=== PATIENT | male | born 1975 | race Caucasian/White ===

== ENCOUNTER 2017-04-30 20:16 | Emergency (ER) | payer BC, OTHER ==
--- NOTE | 2017-04-30 21:42 | ED.PDOC ---
History of Present Illness - General Chief Complaint: Cardiovascular Problem Stated Complaint: irregular heartrate Time Seen by Provider: 04/30/17 20:54 Source: patient, RN notes reviewed, Vital Signs reviewed Exam Limitations: no limitations - History of Present Illness Initial Comments: Patient with known history of atrial fibrillation comes in with irregular heart beat. He woke up from a nap @ 17:00 and felt like he had not rested at all. Had no energy and felt a little light headed when he stood up. No chest pain or SOB. BP was elevated at home. He is not on any medications for a. fib at this time. He has had a cardiac workup for this but [facility] Timing/Duration: 1-3 hours Severity: mild Location: substernal Activities at Onset: rest Prior Chest Pain/Cardiac Workup: cardiac cath, stress test, thallium scan Improving Factors: nothing Worsening Factors: nothing Nitro Today/Relief: no nitro taken today Aspirin Treatment Today: no aspirin today Associated Symptoms: weakness Allergies/Adverse Reactions: Allergies NO KNOWN ALLERGY Allergy (Unverified 09/06/12 18:42) Home Medications: Ambulatory Orders Amlodipine Besylate 10 mg PO 04/30/17 Aspirin [Aspirin EC] 81 mg PO 04/30/17 Carvedilol 25 mg PO 04/30/17 Lisinopril 20 mg PO 04/30/17 Review of Systems - Review of Systems Constitutional: States: malaise, weakness. Denies: chills, diaphoresis, fever Respiratory: States: no symptoms reported. Denies: short of breath Cardiology: States: palpitations. Denies: chest pain Gastrointestinal/Abdominal: States: no symptoms reported Musculoskeletal: States: no symptoms reported Skin: States: no symptoms reported Neurological: States: no symptoms reported All other Systems: No Change from Baseline Past Medical History (General) - Patient Medical History Hx Cardiac Disorders: Yes - a-fib Hx Hypertension: Yes Hx Diabetes: No - Vaccination History Immunizations Up to Date: Yes - Triage Comment ED Triage Comment: states had episode in past of a-fib. Family Medical History - Family History Mother Family History: Unknown Physical Exam - Physical Exam General Appearance: Alert, Comfortable, No apparent distress, Well Developed, Well Groomed, Well Hydrated, Well Nourished Neck: non-tender, full range of motion, supple, normal inspection Respiratory: chest non-tender, lungs clear, normal breath sounds, no respiratory distress, no accessory muscle use Cardiovascular/Chest: no gallop, no murmur, tachycardia, irregularly irregular Gastrointestinal/Abdominal: normal bowel sounds, non tender, soft Extremity: normal range of motion, normal inspection, no pedal edema Neurologic: alert, normal mood/affect, oriented x 3 Skin Exam: normal color, warm/dry Comments: Vital Signs 04/30/17 04/30/17 04/30/17 20:36 20:55 21:16 Temperature 98.2 F Pulse Rate 148 H Pulse Rate [ 148 H 159 H 98 H Apical] Respiratory 18 16 Rate Blood Pressure 148/71 134/77 126/71 [Right Arm] O2 Sat by Pulse 97 96 Oximetry Progress - Progress Progress: 04/30/17 21:[address] patient was given Cardizem 20mg IV with a good response. Will give Lovenox 04/30/17 22:43 CK-MB is elevated. Will repeat 2nd set of Cardiac enzymes @ midnight Gave Cardizem CD 120mg PO 05/01/17 00:50 Second set of Cardiac enzymes are better but his heart rate is back up to 140's Will start Diltiazem drip and transfer to the [facility] in [place] 05/01/17 01:21 [facility] is on Tele divert and is unable to accept patient at this time. Will transfer to [facility] in [place]. - Results/Orders Results/Orders: Laboratory Tests 04/30/17 04/30/17 04/30/17 00:05 21:00 21:00 WBC 10.9 H RBC 5.47 Hgb 15.3 Hct 45.4 MCV 83.0 MCH 28.0 MCHC 33.7 RDW 13.8 Plt Count 217 MPV 10.1 Absolute Neuts (auto) 5.50 Absolute Lymphs (auto) 3.80 H Absolute Monos (auto) 1.20 H Absolute Eos (auto) 0.30 Absolute Basos (auto) 0.20 H Neutrophils % 50.4 Lymphocytes % 34.6 Monocytes % 10.9 H Eosinophils % 2.5 Basophils % 1.6 Sodium 139 Potassium 4.4 Chloride 107 Carbon Dioxide 23 Anion Gap 13.4 BUN 16 Creatinine 0.90 BUN/Creatinine Ratio 17.8 Random Glucose 103 Serum Osmolality 279.0 Calcium 9.2 Magnesium Total Bilirubin 0.7 AST 33 ALT 54 Alkaline Phosphatase 47 Creatine Kinase 273 H* 298 H* CK-MB (CK-2) 3.9 4.6 H* CK-MB (CK-2) % 1.43 1.54 Troponin I < 0.02 0.03 Serum Total Protein 7.2 Albumin 3.9 Globulin 3.3 Albumin/Globulin Ratio 1.2 TSH 04/30/17 21:00 WBC RBC Hgb Hct MCV MCH MCHC RDW Plt Count MPV Absolute Neuts (auto) Absolute Lymphs (auto) Absolute Monos (auto) Absolute Eos (auto) Absolute Basos (auto) Neutrophils % Lymphocytes % Monocytes % Eosinophils % Basophils % Sodium Potassium Chloride Carbon Dioxide Anion Gap BUN Creatinine BUN/Creatinine Ratio Random Glucose Serum Osmolality Calcium Magnesium 2.0 Total Bilirubin AST ALT Alkaline Phosphatase Creatine Kinase CK-MB (CK-2) CK-MB (CK-2) % Troponin I Serum Total Protein Albumin Globulin Albumin/Globulin Ratio TSH 4.69 - EKG/XRAY/CT EKG: Atrial, Fibrillation Comments: with RVR, Rate 137 - Additional EKG/XRAY/Consults EKG #2: Atrial, Fibrillation - With RVR Comments: Rate 118 Departure - Departure Clinical Impression: Atrial fibrillation with rapid ventricular response Time of Disposition: 01:28 Disposition: Transfer to Hospital Condition: Poor Departure Forms: ED Discharge - Pt. Copy, Patient Portal Self Enrollment Referrals: Douglas Cortez III, MD [Primary Care Provider] - 1-2 Weeks Home Medications: Ambulatory Orders Amlodipine Besylate 10 mg PO 04/30/17 Aspirin [Aspirin EC] 81 mg PO 04/30/17 Carvedilol 25 mg PO 04/30/17 Lisinopril 20 mg PO 04/30/17 Transfer to Outside Facility - Transfer Information Accepting Provider:: Dr Villatoro Accepting Facility: [facility] Reason for Transfer: specialized care not available
[2017-04-30] MEDS ORDERED: ENOXAPARIN SODIUM 60 MG/0.6 ML SYG SUBCU ONE (21:56)
[2017-05-01] MEDS ORDERED: diltiaZEM DRIP 125 MG/25 ML VIAL IVPB ONE (00:52)
[2017-05-01] MEDS ORDERED: SODIUM CHLORIDE 0.9% 100ML 100 ML IVPB ONE (00:52)
[2017-05-01] MEDS ORDERED: diltiaZEM DRIP 125 MG in SODIUM CHLORIDE 0.9% 100ML 100 ML IVPB SCH (01:00)
[2017-05-01 01:53] VITALS: TEMP 98.6
[2017-05-01 02:01] VITALS: BP 120/58; O2SAT 95
== END 2017-05-01 02:35 | disposition short-term general hospital (02) ==
LOC: ER 20:16
DX: I48.91 Unspecified atrial fibrillation (principal); I10 Essential (primary) hypertension
CPT/HCPCS: 36415; 80053; 82550; 82553; 83735; 84443; 84484; 85025; 93005; J1650; J7050

== ENCOUNTER 2018-01-29 07:47 | Observation (INO) | payer OTHER ==
[2018-01-29] MEDS ORDERED: SODIUM CHLORIDE 0.9% 1000ML 1,000 ML ONE (08:00)
[2018-01-29] MEDS ORDERED: ASPIRIN TABLET 325 MG TAB PO ONE (08:06)
--- NOTE | 2018-01-29 08:14 | ED.PDOC ---
History of Present Illness - General Chief Complaint: Cardiovascular Problem Stated Complaint: heart racing Time Seen by Provider: 01/29/18 07:59 Source: patient Exam Limitations: no limitations - History of Present Illness Initial Comments: the patient is a 42-year-old male presenting to the emergency room secondary to a recurrence of his paroxysmal atrial fibrillation. The patient does take Coreg 25 mg twice daily for prevention of this problem as well as for treatment of hypertension. He has had apparently 3 episodes of paroxysmal atrial fibrillation in the past. He has been to several different larger hospitals and seeing cardiology there on several occasions. His last episode was one year ago. This morning he woke up feeling like his heart was racing with some mild shortness of breath and some mild diaphoresis. No real chest pain just some mild generalized chest discomfort. Not worse with movement. No syncope or near syncope. No recent changes in medications. No other known medical problems. He has never had a heart attack. No history of any thyroid disorder. No history of any blood clots. Timing/Duration: 1-3 hours Severity: moderate Improving Factors: nothing Worsening Factors: nothing Associated Symptoms: diaphoresis Allergies/Adverse Reactions: Allergies NO KNOWN ALLERGY Allergy (Verified 01/29/18 07:58) Home Medications: Ambulatory Orders Amlodipine Besylate 10 mg PO DAILY 04/30/17 Carvedilol 25 mg PO BID 04/30/17 Lisinopril 20 mg PO BID 04/30/17 Aspirin [(None)] 325 mg PO DAILY 01/29/18 Review of Systems - Review of Systems Constitutional: States: malaise EENTM: States: no symptoms reported Respiratory: States: short of breath - mild Cardiology: States: see HPI Gastrointestinal/Abdominal: States: no symptoms reported Genitourinary: States: no symptoms reported Musculoskeletal: States: no symptoms reported Skin: States: no symptoms reported Neurological: States: anxiety Endocrine: States: no symptoms reported All other Systems: No Change from Baseline Past Medical History (General) - Patient Medical History Hx Cardiac Disorders: Yes - a-fib Hx Hypertension: Yes Hx Diabetes: No Surgical History: no surgical history - Vaccination History Hx Influenza Vaccination: No - Social History Hx Tobacco Use: No Hx Alcohol Use: No Family Medical History - Family History Mother Family History: Unknown Physical Exam - Physical Exam General Appearance: Alert, Comfortable, No apparent distress Eye Exam: bilateral normal Ears, Nose, Throat: hearing grossly normal, normal ENT inspection, normal pharynx Neck: full range of motion, supple Respiratory: lungs clear, normal breath sounds, no respiratory distress, no accessory muscle use Cardiovascular/Chest: normal peripheral pulses, no edema Peripheral Pulses: radial,right: 2+, radial,left: 2+, dorsalis pedis,right: 2+, dorsalis pedis,left: 2+ Gastrointestinal/Abdominal: non tender, soft Rectal Exam: deferred Back Exam: normal inspection, no CVA tenderness Extremity: non-tender, normal inspection, no pedal edema, no calf tenderness, normal capillary refill Neurologic: software sales consultant II-XII nml as tested, alert, normal mood/affect, oriented x 3 Skin Exam: normal color Comments: Vital Signs - 24 hr 01/29/18 01/29/18 07:55 08:02 Temperature 97.1 F L Pulse Rate [ 154 H 134 H pulse ox] Respiratory 20 Rate Blood Pressure 156/89 [Left Arm] O2 Sat by Pulse 96 Oximetry Progress - Progress Progress: 01/29/18 11:49 the patient is a 42-year-old male presenting after about 3 hours of the noticeable onset of atrial fibrillation with RVR. The patient received 20 mg of IV diltiazem followed by another 180 mg of the long-acting oral form about an hour and a half later. He is still in atrial fibrillation but is rate controlled. He is currently asymptomatic. He did take his oral carvedilol at 25 mg this morning before coming up here. Both sets of cardiac enzymes have failed to show any rise in troponin. His EKG otherwise is reassuring besides the atrial fibrillation. He has no known history of any valvular disease or coronary artery disease. He has cardioverted in the past apparently only with medications and is not interested in any electrical cardioversion at this time which is reasonable given his minimal symptoms. Vital signs have remained stable otherwise. He is currently rate controlled in the 70s to 90s. He did receive a dose of aspirin and a dose of Lovenox here. The patient is going to be admitted for further monitoring and management for rate control and possible cardioversion, chemically. He will need further cardiac enzymes to complete the rule out process. The chest x-ray shows possible pulmonary edema however I believe this is simply a factor of the patient being very large and this being a portable single view x-ray. A repeat of this with a good two-view x-ray may give a better image. No evidence of any hypoxia. Again his lungs have been clear and he has been chest pain-free. He is not feeling the atrial fibrillation now that is rate controlled. Admit for above. - Results/Orders Results/Orders: EKG shows atrial fibrillation at a rate of 136 bpm. There is a Q-wave in lead 3. He has borderline criteria for LVH. No definitive changes in ST segments concerning for ischemia. Normal QT interval. Possibly a very mild right axis deviation. Departure - Departure Clinical Impression: Atrial fibrillation with RVR Disposition: Admit Patient Departure Forms: ED Discharge - Pt. Copy, Patient Portal Self Enrollment Referrals: Douglas Cortez III, MD [Primary Care Provider] - 1-2 Weeks Home Medications: Ambulatory Orders Amlodipine Besylate 10 mg PO DAILY 04/30/17 Carvedilol 25 mg PO BID 04/30/17 Lisinopril 20 mg PO BID 04/30/17 Aspirin [(None)] 325 mg PO DAILY 01/29/18 Decision To Admit - Decistion To Admit Decision to Admit Reason: Medical Nature Decision to Admit Date: 01/29/18 Decision to Admit Time: 11:53
--- NOTE | 2018-01-29 08:36 | RAD ---
EXAM DESCRIPTION: Chest,1 View CLINICAL HISTORY: parox afib COMPARISON: None. FINDINGS: Cardiac silhouette is within normal limits. There is no focal parenchymal or pleural disease. There is bilateral maxillary vascular engorgement. Habitus limits detail. Consolidation is not excluded at the left lung base. IMPRESSION: Pulmonary edema. Limited detail. Electronically signed by: Jl Merritt 01/29/2018 8:35 AM CDT
[2018-01-29] MEDS ORDERED: diltiaZEM HCL CD 180 MG CAP PO ONE (09:08)
[2018-01-29] MEDS ORDERED: SODIUM CHLORIDE 0.9% 1000ML 1,000 ML IVS ONE (09:10)
[2018-01-29] MEDS ORDERED: ENOXAPARIN SODIUM 100 MG/ML SYG SUBCU ONE (11:44)
[2018-01-29] MEDS ORDERED: METOPROLOL TARTRATE 25 MG TAB PO ONE (11:56)
--- NOTE | 2018-01-29 12:39 | HP ---
SUPERVISING PHYSICIAN: Dev Vargas M.D. CHIEF COMPLAINT: Palpitations. HISTORY OF PRESENT ILLNESS: This is a 42 year-old male patient who presented to the Emergency Room secondary to recurrence of paroxysmal atrial fibrillation. He has had 3 episodes over the last 3 years and has been transferred to other hospitals due to that, but he does not see a stopper maker helper routinely. The patient woke up this morning about 5:00 AM. He did not have any chest pain but he felt the palpitations in his chest. He said it was just kind of a dull ache and initially thought it was some symptoms of some acid reflux. Then he woke up at 7:00 AM and he had some mild chest pain and the palpitations were much worse. They were very similar to episodes that he has had in the past. He does take Coreg for the paroxysmal atrial fibrillation and he came to the Emergency Room today. In the Emergency Room he came in and his heart rate was in the 130s to 150s. He was in atrial fibrillation. He was initially given 20 mg of Cardizem IV. It slowed his heart rate down to the 100s to 120s. He was then given some long-acting Cardizem. His heart rate dropped to the 80s and 90s. On admission to the Emergency Room, he had no further complaints of chest pain. His initial 2 sets of cardiac enzymes were negative with the exception of his CK was 396 and his CK-MB was 5.3. His electrolytes were basically within normal limits but his glucose was slightly elevated at 157. His CBC was within normal limits. His PT was 10.1, INR was 0.8. PTT was 35.7 and D-dimer was less than 230. I was called for admission for further monitoring and management of rate control. PAST MEDICAL HISTORY: 1. Hypertension. 2. Gastroesophageal reflux disease. 3. Atrial fibrillation. 4. Heart murmur. 5. Sleep apnea. PAST SURGICAL HISTORY: 1. Eye surgery as a child. 2. Oral surgery as a child. OUTPATIENT MEDICATIONS: 1. Multivitamin. 2. Amlodipine. 3. Aspirin. 4. Carvedilol. 5. Lisinopril. ALLERGIES: NO KNOWN DRUG ALLERGIES. FAMILY HISTORY: His dad has heart problems and of lung cancer due to smoking. His mom has diabetes mellitus and hypertension. SOCIAL HISTORY: He denies any smoking, ETOH or illicit drug use. REVIEW OF SYSTEMS: GENERAL: Denies fever, fatigue or weight changes. HEENT: Denies sinus symptoms, ear pain, vision changes or sore throat. RESPIRATORY: Initially complained of some shortness of breath, but at this time no complaints of shortness of breath, wheezing or coughing. CARDIOLOGY: As per History of Present Illness. GASTROINTESTINAL: Negative for nausea, vomiting, diarrhea or constipation. GENITOURINARY: Negative for hematuria, dysuria or polyuria. MUSCULOSKELETAL: Negative for back pain, arthralgias or myalgias. NEUROLOGIC: Positive for some mild anxiety. Negative for dizziness, headache or seizures. PHYSICAL EXAMINATION: VITAL SIGNS: He is afebrile, heart rate 92, blood pressure 161/83, respiratory rate 18, O2 sat is 95% on room air. GENERAL: This is a 42 year-old male patient. He is obese. HEENT: Normocephalic and atraumatic. Pupils are equal and reactive. Oropharynx is clear. NECK: Supple without mass. There is no discernible jugular venous distention. RESPIRATORY: Somewhat diminished at the bases but otherwise clear to auscultation. CHEST: There is equal rise and fall of the chest with inspiration and expiration. CARDIOVASCULAR: Regular rate, irregular rhythm. Atrial fibrillation on the media monitor although I see occasional runs of sinus rhythm. There may be a vague heart murmur but difficult to discern. ABDOMEN: Soft, nondistended, non-tender. Bowel sounds are positive. EXTREMITIES: No cyanosis, clubbing or edema. NEUROLOGIC: He is awake, alert and oriented times three. LABORATORY: Labs are as per the history of present illness. Chest x-ray showed some mild pulmonary edema with limited detail. All other labs and films have been reviewed via the EMR. ASSESSMENT: 1. Paroxysmal atrial fibrillation. 2. Hypertension. 3. Gastroesophageal reflux disease. 4. Sleep apnea. PLAN: We will place the patient in Observation. He will be placed on the media monitor and we will do serial cardiac enzymes. I have consulted Dr. Nichole in the morning for cardiac workup. I will also repeat his lab as well as a 2 view chest x-ray in the morning. His home medications have been restarted. We will continue to monitor him closely and follow as needed. Dr. Vargas is the collaborating physician available for consultation. #[id number] [facility]
[2018-01-29] MEDS ORDERED: SODIUM CHLORIDE 0.9% (FLUSH) 10 ML SYG IV PRN (13:17)
[2018-01-29] MEDS ORDERED: TEMAZEPAM 15 MG CAP PO PRN (13:18)
[2018-01-29] MEDS ORDERED: IV SET AND CAP CHANGE INJ INJ SCH (13:30)
[2018-01-29] MEDS: PANTOPRAZOLE SODIUM TAB 40 MG PO SCH (14:16)
[2018-01-29] MEDS: ENOXAPARIN SODIUM 40 MG/0.4 ML SYG SUBCU SCH ×2 (14:16→14:19)
[2018-01-29] MEDS: SODIUM CHLORIDE 0.9% (FLUSH) 10 ML SYG IV SCH (21:02)
[2018-01-29] MEDS: CARVEDILOL 12.5 MG TAB PO SCH (21:02)
[2018-01-29] MEDS: LISINOPRIL 10 MG TAB PO SCH (21:02)
[2018-01-30] MEDS: PANTOPRAZOLE SODIUM TAB 40 MG PO SCH (06:32)
--- NOTE | 2018-01-30 07:27 | RAD ---
Examination: XR CHEST 2 VIEWS dated 01/30/2018 5:00 AM CDT History: afib Comparison: 01/29/2018 Technique: 2 views of the chest Findings: The lungs are clear bilaterally. No pneumothorax or pleural effusion. The cardiomediastinal silhouette is within normal limits. Impression: No acute disease. Electronically signed by: Edmond Dias MD 01/30/2018 7:26 AM CDT
[2018-01-30] MEDS ORDERED: amLODIPine BESYLATE 5 MG TAB PO SCH (09:00)
[2018-01-30] MEDS ORDERED: ENOXAPARIN SODIUM 40 MG/0.4 ML SYG SUBCU SCH (09:00)
[2018-01-30] MEDS ORDERED: ASPIRIN TABLET 325 MG TAB PO SCH (09:00)
[2018-01-30] MEDS: CARVEDILOL 12.5 MG TAB PO SCH (09:17)
[2018-01-30] MEDS: LISINOPRIL 10 MG TAB PO SCH (09:25)
[2018-01-30] MEDS: SODIUM CHLORIDE 0.9% (FLUSH) 10 ML SYG IV SCH (09:28)
[2018-01-30 12:08] VITALS: TEMP 98
[2018-01-30 12:23] VITALS: O2SAT 95
[2018-01-30 15:26] VITALS: BP 137/78
--- NOTE | 2018-01-31 09:19 | DS ---
SUPERVISING PHYSICIAN: Dev Vargas MD DISCHARGE DIAGNOSIS: 1. Paroxysmal atrial fibrillation. 2. Hypertension. 3. Gastroesophageal reflux disease. 4. Sleep apnea. HISTORY OF PRESENT ILLNESS: This is a 42-year-old male patient who presented to the Emergency Room secondary to recurrence of paroxysmal atrial fibrillation. He has had 3 episodes over the last 3 years and has been transferred to other hospitals for the atrial fibrillation, but he does not see a senior core java developer routinely. On the date of admission, he woke up about 5:00 AM. There was no chest pain but he felt the palpitations. He said it was just kind of a dull ache and initially thought it was some symptoms of some acid reflux. He then woke up at 7:00 AM and he had some mild chest pain and the palpitations were worse. The chest pain and palpitations were similar to episodes that he has had in the past. He does take Coreg for the paroxysmal atrial fibrillation and he came to the Emergency Room. In the Emergency Room, his heart rate was in the 130s to 150s. He was in atrial fibrillation. He was initially given 20 mg of Cardizem IV. It slowed his heart rate down to the 100s to 120s. He was then given some long-acting Cardizem orally. His heart rate dropped to the 80s to 10s. In the Emergency Room, he had no complaints of chest pain. His initial 2 sets of cardiac enzymes were negative with the exception of his CK was 396 and his CK-MB was 5.3. His electrolytes were basically within normal limits but his glucose was slightly elevated at 157. His CBC was within normal limits. His coags were normal including his D-dimer less than 230. He was placed in observation in the hospital. HOSPITAL COURSE: The patient was placed on the hospice volunteer and initially his heart rate was controlled, but he varied between atrial fibrillation and sinus tachycardia. This morning, he converted to sinus rhythm. There were no further episodes of the atrial fibrillation with rapid ventricular response. His home medications were resumed. No additional medications were given or added other than he was given a proton pump inhibitor for ulcer prophylaxis and Lovenox for DVT prophylaxis. We discussed at length his need for a senior core java developer and an appointment was made with Dr. Joe. He has had no complaints of chest pain. His creatinine kinase dropped to 236. His CK-MB was 4.3 and all his troponins were negative. He will be discharged home in stable condition. DISCHARGE PLAN: The patient will be discharged home in stable condition. He is to resume his previous diet and activity. He is also to resume his home medications as previously ordered. He has a followup appointment with Dr. Joe on 02/06/18 at 1:15. He has a followup with is primary care physician, Dr. Douglas Cortez, on 02/07/18 at 8:30 AM. He is to return to the hospital or to Dr. Cortez' office for any further problems or complications. DISCHARGE MEDICATIONS: 1. Lisinopril. 2. Carvedilol. 3. Amlodipine. 4. Aspirin 325 mg. [address] Vargas is the collaborating physician and available for consultation. #[id number] [facility]
== END 2018-01-30 15:30 | disposition home or self-care (01) ==
LOC: ER 07:47 → MS 12:38
PROVIDERS: ADMIT Nurse Practitioner Acute Care; ATTEND Nurse Practitioner Acute Care
DX: I48.0 Paroxysmal atrial fibrillation (principal); I10 Essential (primary) hypertension; K21.9 Gastro-esophageal reflux disease without esophagitis; G47.30 Sleep apnea, unspecified; R06.02 Shortness of breath; Z79.82 Long term (current) use of aspirin; Z79.899 Other long term (current) drug therapy; Z82.49 Family history of ischemic heart disease and other diseases of the circulatory system; Z83.3 Family history of diabetes mellitus; Z80.1 Family history of malignant neoplasm of trachea, bronchus and lung
CPT/HCPCS: 96372 ×2; J7030; J1650 ×2; 85379; 82553 ×4; 80053 ×2; 36415 ×2; 85025 ×2; 82550 ×4; 83735; 85730; 85610; 84443; 84484 ×4; 83880; 71045; 71046; 94760 ×5; 99285; 93005 ×2; G0378; 96374; 96376

== ENCOUNTER 2018-02-08 09:30 | Emergency (ER) | payer OTHER ==
[2018-02-08] MEDS ORDERED: ASPIRIN TABLET 325 MG TAB PO ONE (09:50)
[2018-02-08] MEDS ORDERED: SODIUM CHLORIDE 0.9% (FLUSH) 10 ML SYG IV PRN (09:50)
[2018-02-08 09:52] VITALS: TEMP 98.4
[2018-02-08] MEDS ORDERED: diltiaZEM DRIP 125 MG/25 ML VIAL IVPB ONE (09:56)
[2018-02-08] MEDS ORDERED: AMIODARONE IV (LOAD) 150 MG in DEXTROSE 5% 100ML 100 ML IVPB ONE (09:57)
[2018-02-08] MEDS ORDERED: SODIUM CHLORIDE 0.9% 1000ML 1,000 ML IVS ONE (09:57)
[2018-02-08] MEDS ORDERED: niCARdipine HCL 25 MG in SODIUM CHLORIDE 0.9% 250ML 240 ML IVPB SCH (10:00)
[2018-02-08] MEDS ORDERED: AMIODARONE IV (MAINT) 900 MG in DEXTROSE 5% (AVIVA) 500ML 500 ML IVPB SCH (10:00)
[2018-02-08] MEDS ORDERED: AMIODARONE HCL 150 MG/3 ML VIAL IVPB ONE (10:03)
[2018-02-08] MEDS ORDERED: DEXTROSE 5% 100ML 100 ML IVPB ONE (10:04)
--- NOTE | 2018-02-08 10:06 | ED.PDOC ---
History of Present Illness - General Chief Complaint: Chest Pain/NE Stated Complaint: PALPITATIONS Time Seen by Provider: 02/08/18 09:44 Source: patient Exam Limitations: no limitations - History of Present Illness Initial Comments: PT REPORTS ONSET OF PALPITATIONS ASSOCIATED WITH CHEST PRESSURE AND MILD SOB UPON AWAKENING THIS AM. PT REPORTS A HISTORY OF AFIB WITH RECENT HOSPITALIZATION LAST WEEK. PT REPORTS HIS MEDS WERE ADJUSTED RECENTLY AND HE WAS PRESCRIBED A BLOOD THINNER BUT HAS NOT STARTED THE NEW REGIMEN YET. Timing/Duration: 1-3 hours Severity: mild Location: substernal Activities at Onset: sleep Improving Factors: nothing Worsening Factors: nothing Nitro Today/Relief: no nitro taken today Aspirin Treatment Today: no aspirin today Associated Symptoms: chest pain, shortness of breath Allergies/Adverse Reactions: Allergies NO KNOWN ALLERGY Allergy (Verified 01/29/18 13:30) Home Medications: Ambulatory Orders Amlodipine Besylate 10 mg PO DAILY 04/30/17 Carvedilol 25 mg PO BID 04/30/17 Lisinopril 20 mg PO BID 04/30/17 Aspirin 325 mg PO DAILY 01/29/18 Multiple Vitamin [Multi Vitamin] 1 tab PO DAILY 01/29/18 Azithromycin Tab [Zithromax] 250 mg PO QD #4 tab 02/08/18 Review of Systems - Review of Systems Constitutional: Denies: chills, fever EENTM: Denies: nose congestion, throat pain Respiratory: States: see HPI, short of breath. Denies: cough Cardiology: States: see HPI, chest pain, palpitations. Denies: syncope Gastrointestinal/Abdominal: Denies: nausea, vomiting Genitourinary: Denies: dysuria, frequency Musculoskeletal: Denies: joint pain, joint swelling Skin: Denies: dryness, lesions Neurological: Denies: headache, numbness Endocrine: States: no symptoms reported Hematologic/Lymphatic: States: no symptoms reported Past Medical History (General) - Patient Medical History Hx Seizures: No Hx Stroke: No Hx Asthma: No Hx of COPD: No Hx Cardiac Disorders: Yes - a-fib Hx Congestive Heart Failure: No Hx Pacemaker: No Hx Hypertension: Yes Hx Diabetes: No Hx MRSA: No Surgical History: no surgical history - Vaccination History Hx Influenza Vaccination: No - Social History Hx Tobacco Use: No Hx Alcohol Use: No Hx Substance Use: No Hx Physical Abuse: No Hx Emotional Abuse: No Family Medical History - Family History Mother Family History: Unknown Physical Exam - Physical Exam General Appearance: Alert, No apparent distress, Obese, Well Groomed, Well Hydrated Eyes, Ears, Nose, Throat Exam: normal ENT inspection Neck: normal inspection Respiratory: lungs clear, normal breath sounds, no respiratory distress Cardiovascular/Chest: no murmur, tachycardia, irregularly irregular Gastrointestinal/Abdominal: non tender, soft Extremity: normal inspection, no pedal edema Neurologic: alert, normal mood/affect, oriented x 3 Skin Exam: normal color, warm/dry Progress - Progress Progress: 02/08/18 11:48 PT RESTING COMFORTABLY, REPORTS COMPLETE RESOLUTION OF CHEST PAIN, PT NOW IN SR IN THE 70S WITH SBP OF 117 02/08/18 14:02 PTS HR REMAINS IN SR IN THE 80S, NO COMPLAINTS, AMIODARONE INFUSING. 02/08/18 15:36 PT CONTINUES TO REST COMFORTABLY, SR IN THE 70S, PT HAS NO COMPLAINTS CURRENTLY , AMIODARONE STILL INFUSING. 02/08/18 17:41 AMIODARONE DRIP FINISHED. PT NOW EATING AT BESIDE. WILL D/C HOME FOR FOLLOW UP WITH DR. CASTANEDA TOMORROW. - Results/Orders Results/Orders: 02/08/18 09:50 Sodium Chloride 0.9% (Flush) [Saline Flush Syringe] 10 ml IV PRN PRN 02/08/18 09:51 Telemetry .ONCE EKG Stat Pulse Ox Stat 02/08/18 10:00 Amiodarone IV (Maint) [Cordarone IV (Maint)] 900 mg Dextrose 5% (Adenike) 500Ml [D5W 500ml (ADENIKE BAG)] 500 ml IVPB PRN 02/08/18 12:30 BLOOD CULTURE Stat 02/08/18 13:00 EKG STAT 02/08/18 Lunch Regular Diet Laboratory Results - last 24 hr 02/08/18 09:45 WBC 11.7 H RBC 5.61 Hgb 15.7 Hct 47.0 MCV 83.8 MCH 28.0 MCHC 33.4 RDW 14.4 Plt Count 261 MPV 10.0 Absolute Neuts (auto) 6.50 Absolute Lymphs (auto) 3.70 H Absolute Monos (auto) 1.00 H Absolute Eos (auto) 0.30 Absolute Basos (auto) 0.10 Neutrophils % 55.8 Lymphocytes % 31.9 Monocytes % 8.8 Eosinophils % 2.3 Basophils % 1.2 PT 11.1 INR 0.960 PTT (SP) 33.1 Sodium 138 Potassium 4.8 Chloride 104 Carbon Dioxide 28 Anion Gap 10.8 L BUN 16 Creatinine 1.00 BUN/Creatinine Ratio 16.0 Random Glucose 128 H Serum Osmolality 278.5 Calcium 9.2 Magnesium 1.9 Creatine Kinase 244 H* CK-MB (CK-2) 4.9 H* CK-MB (CK-2) % 2.01 Troponin I 0.03 B-Natriuretic Peptide 152.0 H - EKG/XRAY/CT EKG: Atrial, Fibrillation, RVR - @152BPM, LBBB - NL AXIS, Changed from - 2017, LBBB PATTERN IS NEW XRAY: chest - RLL INFILTRATE, CARDIOMEGALY - Consult/PCP Time Called: 11:50 Consult/PCP: DR. CASTANEDA (INVESTMENT ACCOUNTING CLERK) Consult Reason/Comments: CASE DISCUSSED WITH DR. VIDAL WHO ADVISED 6 HOUR LOAD OF AMIODARONE - Additional EKG/XRAY/Consults EKG #2: Sinus - @68bpm, NL INTERVALS, NL AXIS, no ST T wave changes, Changed from - PREVIOUS EKG Departure - Departure Clinical Impression: Atrial fibrillation with rapid ventricular response, Pneumonia Time of Disposition: 17:38 Disposition: Discharge to Home or Self Care Condition: Good Departure Forms: ED Discharge - Pt. Copy, Patient Portal Self Enrollment Instructions: DI for Pneumonia -- Adult, DI for Atrial Fibrillation Diet: resume usual diet Activity: increase activity as tolerated Referrals: Douglas Cortez III, MD [Primary Care Provider] - 1-2 Weeks Prescriptions: Azithromycin Tab [Zithromax] 250 mg PO QD #4 tab Home Medications: Ambulatory Orders Amlodipine Besylate 10 mg PO DAILY 04/30/17 Carvedilol 25 mg PO BID 04/30/17 Lisinopril 20 mg PO BID 04/30/17 Aspirin 325 mg PO DAILY 01/29/18 Multiple Vitamin [Multi Vitamin] 1 tab PO DAILY 01/29/18 Azithromycin Tab [Zithromax] 250 mg PO QD #4 tab 02/08/18 Critical Care Note - Critical Care Note Total Time (mins): 60 Comments: CRITICAL EVENT: AFIB WITH RVR CRITICAL FINDINGS: AFIB WITH RVR IN THE 160S WITH SBP IN THE 80S CRITICAL ACTION: INITIATION OF IV AMIODARONE AND AMIODARONE DRIP, IV FLUID RESUSCITATION EMERGENT INVESTMENT ACCOUNTING CLERK CONSULT
[2018-02-08] MEDS ORDERED: AMIODARONE HCL 900 MG/18 ML VIAL IVPB ONE (10:11)
--- NOTE | 2018-02-08 10:26 | RAD ---
EXAM DESCRIPTION: Chest,1 View CLINICAL HISTORY: 42 years Male, chest pain COMPARISON: Previous study January 30, 2018 TECHNIQUE: AP portable chest. FINDINGS: Heart size is mildly enlarged with normal pulmonary vascularity. Abnormal density is seen in the medial right lung base with subtle air bronchograms suggesting atelectasis or pneumonic infiltration above elevated right hemidiaphragm. This appears new compared to the previous study. No pulmonary mass or worrisome nodule. No pneumothorax or pleural effusion. Bones are unremarkable. IMPRESSION: Right lower lobe infiltrate or atelectasis. Large heart without congestive failure. Electronically signed by: Doe Koch MD 02/08/2018 10:25 AM CDT
[2018-02-08] MEDS ORDERED: SODIUM CHLORIDE 0.9% 500ML 500 ML ONE (10:40)
[2018-02-08] MEDS ORDERED: AZITHROMYCIN IV 500 MG in SODIUM CHLORIDE 0.9% 250ML 250 ML IVPB ONE (12:04)
[2018-02-08] MEDS ORDERED: cefTRIAXone SODIUM 1 GM in SODIUM CHL 0.9% 50ML MIN-BAG+ 50 ML IVPB ONE (12:04)
[2018-02-08] MEDS ORDERED: cefTRIAXone SODIUM 1 GM VIAL ONE (12:25)
[2018-02-08] MEDS ORDERED: SODIUM CHL 0.9% 50ML MIN-BAG+ 50 ML IVPB ONE (12:25)
[2018-02-08] MEDS ORDERED: AZITHROMYCIN IV 500 MG VIAL IVPB ONE (13:08)
[2018-02-08] MEDS ORDERED: SODIUM CHLORIDE 0.9% 250ML 250 ML ONE (13:08)
[2018-02-08 17:35] VITALS: BP 142/58; O2SAT 96
== END 2018-02-08 17:35 | disposition home or self-care (01) ==
LOC: ER 09:30
DX: I48.91 Unspecified atrial fibrillation (principal); J18.9 Pneumonia, unspecified organism; I44.7 Left bundle-branch block, unspecified; I10 Essential (primary) hypertension; Z79.82 Long term (current) use of aspirin
CPT/HCPCS: 36415; 71045; 80048; 82550; 82553; 83880; 84484; 85025; 85610; 85730; 87040; 93005; 94760; J0282; J0456; J0696; J7030; J7040; J7050; J7060

== ENCOUNTER 2018-02-19 14:54 | Emergency (ER) | payer OTHER ==
[2018-02-19 15:22] VITALS: TEMP 98
[2018-02-19] MEDS ORDERED: SODIUM CHLORIDE 0.9% (FLUSH) 10 ML SYG IV PRN (15:45)
--- NOTE | 2018-02-19 15:50 | ED.PDOC ---
History of Present Illness - General Chief Complaint: Cardiovascular Problem Stated Complaint: afib Time Seen by Provider: 02/19/18 15:45 Source: patient Exam Limitations: no limitations Additional Information: PT HAS HAD RECURRENT A FIB. SAW PCP YESTERDAY WHO GAVE RX FOR DIGOXIN BUT HAS NOT STARTED YET. ONSET OF RAPID HEART RATE TODAY. - History of Present Illness Timing/Duration: 4-6 hours Severity: moderate Location: substernal Activities at Onset: none Prior Chest Pain/Cardiac Workup: no prior chest pain Improving Factors: nothing Worsening Factors: nothing Associated Symptoms: denies symptoms Allergies/Adverse Reactions: Allergies NO KNOWN ALLERGY Allergy (Verified 02/19/18 15:19) Home Medications: Ambulatory Orders Amlodipine Besylate 10 mg PO DAILY 04/30/17 Carvedilol 25 mg PO BID 04/30/17 Lisinopril 20 mg PO BID 04/30/17 Aspirin 325 mg PO DAILY 01/29/18 Multiple Vitamin [Multi Vitamin] 1 tab PO DAILY 01/29/18 Azithromycin Tab [Zithromax] 250 mg PO QD #4 tab 02/08/18 Review of Systems - Review of Systems Constitutional: Denies: chills, fever EENTM: States: no symptoms reported Respiratory: Denies: cough, short of breath, wheezing Cardiology: States: palpitations, other. Denies: chest pain, edema, syncope Gastrointestinal/Abdominal: Denies: abdominal pain, diarrhea, nausea, vomiting Genitourinary: States: no symptoms reported Musculoskeletal: States: no symptoms reported Skin: States: no symptoms reported Neurological: States: no symptoms reported Endocrine: States: no symptoms reported Hematologic/Lymphatic: States: no symptoms reported Past Medical History (General) - Patient Medical History Hx Seizures: No Hx Stroke: No Hx Dementia: No Hx Asthma: No Hx of COPD: No Hx Cardiac Disorders: Yes - AFIB Hx Congestive Heart Failure: No Hx Pacemaker: No Hx Hypertension: Yes Hx Thyroid Disease: No Hx Diabetes: No Hx Gastroesophageal Reflux: No Hx Renal Disease: No Hx Cancer: No Hx of HIV: No Hx Hepatitis C: No Hx MRSA: No Surgical History: no surgical history - Vaccination History Hx Tetanus, Diphtheria Vaccination: Yes Hx Influenza Vaccination: No Hx Pneumococcal Vaccination: No Immunizations Up to Date: No - Social History Hx Tobacco Use: No Hx Chewing Tobacco Use: No Hx Alcohol Use: No Hx Substance Use: No Hx Substance Use Treatment: No Hx Depression: No Feels Threatened In Home Enviroment: No Feels Threatened In a Relationship: No Hx Physical Abuse: No Hx Emotional Abuse: No Hx Suspected Abuse: No - Female History Patient is a Female of Child Bearing Age (10 -59 yrs old): No Patient : No Family Medical History - Family History Mother Family History: Unknown Living Status: Unknown Hx Family Asthma: No Hx Family Congestive Heart Failure: No Physical Exam - Physical Exam General Appearance: No apparent distress, Obese Eyes, Ears, Nose, Throat Exam: PERRL/EOMI, normal ENT inspection Neck: non-tender, full range of motion, supple, normal inspection Respiratory: lungs clear, normal breath sounds Cardiovascular/Chest: no murmur, tachycardia, irregularly irregular Gastrointestinal/Abdominal: non tender, soft, no organomegaly Extremity: normal range of motion, non-tender, normal inspection Neurologic: alert, oriented x 3 Skin Exam: normal color, warm/dry Lymphatic: no adenopathy Progress - Progress Progress: 02/19/18 17:32 RATE 80'S AFIB. D/W DR OCRTEZ WILL GIVE DIG 0.125 PO NOW AND HE WILL FOLLOW IN OFFICE. - EKG/XRAY/CT EKG: Atrial, Fibrillation - VENT RATE 142, NL AIXS,, no ST T wave changes - NAIP , Changed from - 02/08/2018, AFIB PERSISTS BUT LBBB HAS RESOLVED Departure - Departure Clinical Impression: Atrial fibrillation Qualifiers: Atrial fibrillation type: paroxysmal Qualified Code(s): I48.0 - Paroxysmal atrial fibrillation Time of Disposition: 17:35 Disposition: Discharge to Home or Self Care Condition: Good Departure Forms: ED Discharge - Pt. Copy, Patient Portal Self Enrollment Instructions: DI for Atrial Fibrillation Referrals: Douglas Cortez III, MD [Primary Care Provider] - 1-2 Weeks Home Medications: Ambulatory Orders Amlodipine Besylate 10 mg PO DAILY 04/30/17 Carvedilol 25 mg PO BID 04/30/17 Lisinopril 20 mg PO BID 04/30/17 Aspirin 325 mg PO DAILY 01/29/18 Multiple Vitamin [Multi Vitamin] 1 tab PO DAILY 01/29/18 Azithromycin Tab [Zithromax] 250 mg PO QD #4 tab 02/08/18 Critical Care Note - Critical Care Note Total Time (mins): 40 Comments: CRITICAL EVENT: ATRIAL FIB WITH RVR FINDINGS: PULSE 150'S. A FIB SYSTEM AT RISK: CARDIOVASCULAR, INTERVENT: INTRAVENOUS CARDIZEM FOR RATE CONTROL AND TO PREVENT DEGREDATION OF RHYTHM AND BLOOD PRESSURE.
[2018-02-19 15:54] VITALS: O2SAT 94
--- NOTE | 2018-02-19 16:20 | RAD ---
EXAM DESCRIPTION: Chest,1 View CLINICAL HISTORY: 42 years Male, chest pain COMPARISON: February 08, 2018 TECHNIQUE: AP portable chest. FINDINGS: Heart size is prominent with normal pulmonary vascularity. No consolidating infiltrate. No pulmonary mass or worrisome nodule. No pneumothorax or pleural effusion. Bones are unremarkable. Improved aeration of the right lung base is noted compared to the previous study. Otherwise no significant change compared to the previous study. IMPRESSION: Prominent heart without congestive failure Electronically signed by: Doe Koch MD 02/19/2018 4:18 PM CDT
[2018-02-19] MEDS ORDERED: DIGOXIN 0.25 MG TAB PO ONE (17:30)
[2018-02-19 17:50] VITALS: BP 144/63
== END 2018-02-19 17:48 | disposition home or self-care (01) ==
LOC: ER 14:54
DX: I48.0 Paroxysmal atrial fibrillation (principal); R00.0 Tachycardia, unspecified; I10 Essential (primary) hypertension; Z79.82 Long term (current) use of aspirin; Z79.899 Other long term (current) drug therapy

== ENCOUNTER 2018-02-19 21:02 | Observation (INO) | payer OTHER ==
[2018-02-19] MEDS ORDERED: diltiaZEM DRIP 125 MG/25 ML VIAL IVPB ONE (21:25)
[2018-02-19] MEDS ORDERED: SODIUM CHLORIDE 0.9% 100ML 100 ML IVPB ONE (21:25)
[2018-02-19] MEDS ORDERED: diltiaZEM DRIP 125 MG in SODIUM CHLORIDE 0.9% 100ML 100 ML IVPB SCH (21:30)
--- NOTE | 2018-02-19 21:50 | ED.PDOC ---
History of Present Illness - General Source: patient Exam Limitations: no limitations Additional Information: PT WAS SEEN EARLIER FOR AFIB WITH RVR. RATE WAS CONTROLLED WITH CARDIZEM BOLUS AND PT WAS SENT HOME. RETURNS NOW WITH ELEVATED HR AND SOME CHEST DISCOMFORT. 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 Severity: mild Location: substernal <Jem Severino - Last Filed: 02/20/18 07:12> <David Peace - Last Filed: 02/20/18 07:50> - General Chief Complaint: Cardiovascular Problem Stated Complaint: A-Fib, Chest pain Time Seen by Provider: 02/19/18 21:21 - History of Present Illness Allergies/Adverse Reactions: Allergies NO KNOWN ALLERGY Allergy (Verified 02/19/18 15:19) Home Medications: Ambulatory Orders Amlodipine Besylate 10 mg PO DAILY 04/30/17 Carvedilol 25 mg PO BID 04/30/17 Lisinopril 20 mg PO BID 04/30/17 Aspirin 325 mg PO DAILY 01/29/18 Multiple Vitamin [Multi Vitamin] 1 tab PO DAILY 01/29/18 Review of Systems - Review of Systems Constitutional: Denies: chills, fever EENTM: States: no symptoms reported Respiratory: Denies: short of breath Cardiology: States: chest pain, palpitations. Denies: syncope Gastrointestinal/Abdominal: Denies: nausea, vomiting Genitourinary: States: no symptoms reported Musculoskeletal: States: no symptoms reported Skin: States: no symptoms reported Neurological: States: no symptoms reported Endocrine: States: no symptoms reported Hematologic/Lymphatic: States: no symptoms reported <Jem Severino - Last Filed: 02/20/18 07:12> Past Medical History (General) - Patient Medical History Hx Seizures: No Hx Stroke: No Hx Dementia: No Hx Asthma: No Hx of COPD: No Hx Cardiac Disorders: Yes - AFIB Hx Congestive Heart Failure: No Hx Pacemaker: No Hx Hypertension: Yes Hx Thyroid Disease: No Hx Diabetes: No Hx Gastroesophageal Reflux: No Hx Renal Disease: No Hx Cancer: No Hx of HIV: No Hx Hepatitis C: No Hx MRSA: No - Vaccination History Hx Tetanus, Diphtheria Vaccination: Yes Hx Influenza Vaccination: No Hx Pneumococcal Vaccination: No Immunizations Up to Date: Yes - Social History Hx Tobacco Use: No Hx Chewing Tobacco Use: No Hx Alcohol Use: No Hx Substance Use: No Hx Substance Use Treatment: No Hx Depression: No Hx Physical Abuse: No Hx Emotional Abuse: No Hx Suspected Abuse: No - Female History Patient : No <Jem Severino - Last Filed: 02/20/18 07:12> Family Medical History - Family History Mother Family History: Unknown Living Status: Unknown Hx Family Asthma: No Hx Family Congestive Heart Failure: No <Jem Severino - Last Filed: 02/20/18 07:12> Physical Exam - Physical Exam General Appearance: Alert, No apparent distress, Obese Eyes, Ears, Nose, Throat Exam: PERRL/EOMI, normal ENT inspection Neck: non-tender, full range of motion, supple Respiratory: lungs clear, normal breath sounds Cardiovascular/Chest: tachycardia, irregularly irregular Gastrointestinal/Abdominal: non tender, soft, no organomegaly Extremity: normal range of motion, non-tender Neurologic: alert, normal mood/affect, oriented x 3 Skin Exam: normal color, warm/dry Lymphatic: no adenopathy <Jem Severino - Last Filed: 02/20/18 07:12> Progress - Progress Progress: 02/19/18 23:22 CARDIZEM BOLUS AND DRIP STARTED. NURSING WILL NOT ACCEPT PT ON FLOOR. WILL HOLD IN ER FOR NOW AND RE-EVALUATE. 02/20/18 01:51 SLEEPING, PULSE 102, AFIB 02/20/18 07:13 SLEEPING, PULSE 80'S A FIB. WILL START DIGOXIN, IV AND BEGIN TO WEAN CARDIZEM. CARE TRANSFERRED TO DR PEACE - EKG/XRAY/CT EKG: Atrial - VENT RATE 140, NL AXIS, , Fibrillation, nonspecific ST T wave Chg - NAIP, , Unchanged from - TRACING FROM EARLY TODAY <Jem Severino - Last Filed: 02/20/18 07:12> - Progress Progress: 02/20/18 07:47 THE PATIENT HAS BEEN OFF THE CARDIZEM DRIP FOR ONE HOUR AND HAS RECEIVED 0.25 MG OF DIGOXIN. HE IS STILL IN AF WITH A VENTRICULAR RATE VARIABLE OF 85-120. I HAVE SPOKEN TO IAN MENDEZ NP AND WILL ADMIT FOR OBSERVATION AND WILL ADDITIONAL DOSE OF DIGOXIN. HE AGREES ON THE ADMISSION. <David Peace - Last Filed: 02/20/18 07:50> Departure <Jem Severino - Last Filed: 02/20/18 07:12> <David Peace - Last Filed: 02/20/18 07:50> - Departure Clinical Impression: Atrial fibrillation with rapid ventricular response Disposition: Discharge to Home or Self Care Referrals: Douglas Cortez III, MD [Primary Care Provider] - 1-2 Weeks Home Medications: Ambulatory Orders Amlodipine Besylate 10 mg PO DAILY 04/30/17 Carvedilol 25 mg PO BID 04/30/17 Lisinopril 20 mg PO BID 04/30/17 Aspirin 325 mg PO DAILY 01/29/18 Multiple Vitamin [Multi Vitamin] 1 tab PO DAILY 01/29/18 Critical Care Note - Critical Care Note Total Time (mins): 30 Comments: EVENT: ONSET OF AFIB WITH RVR FINDINGS: HR 150'S SYSTEMS AT RISK: CARDIOVASCULAR INTERVENTION: CARDIZEM FOR RATE CONTROL AND TO PREVENT HYPOTENSION AND FURTHER ARRYTHMIAS. <Jem Severino - Last Filed: 02/20/18 07:12> Decision To Admit - Decistion To Admit Decision to Admit Date: 02/20/18 Decision to Admit Time: 07:49 <David Peace - Last Filed: 02/20/18 07:50>
[2018-02-20] MEDS ORDERED: DIGOXIN INJ 0.5 MG/2 ML AMP IV ONE ×2 (07:16→13:00)
[2018-02-20] MEDS ORDERED: ACETAMINOPHEN 325 MG TAB PO PRN (08:06)
[2018-02-20] MEDS ORDERED: SODIUM CHLORIDE 0.9% (FLUSH) 10 ML SYG IV PRN (08:06)
[2018-02-20] MEDS ORDERED: IV SET AND CAP CHANGE INJ INJ SCH (08:30)
--- NOTE | 2018-02-20 08:31 | RAD ---
EXAM DESCRIPTION: Chest,2 Views CLINICAL HISTORY: chf COMPARISON: Previous studies February 19, 2018, January 30, 2018 TECHNIQUE: PA/lateral FINDINGS: There is no acute appearing cardiac or pulmonary abnormality. Heart size is prominent with normal pulmonary vascularity. Blunting of the posterior costophrenic angles bilaterally seen on the lateral view suggests the presence of small volume pleural effusions. These appear slightly increased compared to previous lateral view from January 30, 2018. No pneumothorax. Lungs are clear with no consolidating infiltrate. Lateral view shows intact sternum and T-spine. IMPRESSION: Prominent heart without congestive failure. Small bilateral pleural effusions. Electronically signed by: Doe Koch MD 02/20/2018 8:30 AM CDT
[2018-02-20] MEDS ORDERED: CARVEDILOL 12.5 MG TAB PO SCH (10:00)
[2018-02-20] MEDS ORDERED: APIXABAN 2.5 MG TAB PO SCH (10:00)
[2018-02-20] MEDS ORDERED: VALSARTAN 80 MG TAB PO SCH (10:00)
[2018-02-20] MEDS ORDERED: amLODIPine BESYLATE 5 MG TAB PO SCH (10:00)
[2018-02-20] MEDS ORDERED: DIGOXIN 0.25 MG TAB PO SCH (12:00)
[2018-02-20] MEDS ORDERED: diltiaZEM HCL CD 180 MG CAP PO SCH (12:00)
[2018-02-20 12:15] VITALS: TEMP 98.2; O2SAT 97
[2018-02-20 13:50] VITALS: BP 173/49
--- NOTE | 2018-02-20 14:47 | SSS ---
SUPERVISING PHYSICIAN: Edmond Baron MD DISCHARGE DIAGNOSIS 1. Atrial fibrillation, new onset on Eliquis, digoxin and Cardizem. 2. Hypertension. 3. Gastroesophageal reflux disease. 4. Sleep apnea. HISTORY OF PRESENT ILLNESS: Mr. Camara is a 42-year-old male patient that presented to the Emergency Room initially on 02/19/18 complaining of palpitations. He has a history of recent diagnosis of atrial fibrillation and noted that his rate had been uncontrolled. On presentation to the Emergency Room, he was noted be in atrial fibrillation with rapid ventricular response. Initially, he was sent home after Cardizem bolus and then returned on this visit for again elevated heart rate and some chest discomfort. He was given a bolus of Cardizem and started on Cardizem drip. EKG shows atrial fibrillation with rapid ventricular response with ventricular rate around 140. He was kept on a Cardizem drip for 12 hours and received a loading dose of digoxin of 0.25 mg. He was noted to have continued atrial fibrillation, but with a better controlled ventricular rate, but variable between 85 and 120. The patient was then admitted after the drip was discontinued to the Medical/Surgical Floor for further cardiac telemetry and observation. PAST MEDICAL HISTORY: 1. Hypertension. 2. Gastroesophageal reflux disease. 3. Atrial fibrillation on Eliquis. 4. Heart murmur. 5. Sleep apnea. PAST SURGICAL HISTORY: 1. Eye surgery as a child. 2. Oral surgery as a child. OUTPATIENT MEDICATIONS: 1. Eliquis 5 mg b.i.d. 2. Losartan 320 mg daily. 3. Multivitamin 1 tablet daily. 4. Carvedilol 25 mg b.i.d. ALLERGIES: NO KNOWN DRUG ALLERGIES FAMILY HISTORY: Father had a history of heart problems and secondary to lung cancer and smoking. His mother has currently diabetes and hypertension. SOCIAL HISTORY: He denies ever smoking. He does not drink alcohol or use illicit drugs. 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 He is . REVIEW OF SYSTEMS: CONSTITUTIONAL: Denies any fevers, fatigue or weight changes. HEENT: Denies sinus congestion, earaches, sore throats, vision changes. RESPIRATORY: No reported shortness of breath, wheezing or coughing. CARDIOVASCULAR: As per history of present illness. GASTROINTESTINAL: Denies nausea or vomiting, diarrhea, constipation. GENITOURINARY: Denies dysuria or polyuria. MUSCULOSKELETAL: Negative for back pain, arthralgias or myalgias. NEUROLOGIC: He does have some anxiety issues, but denies any dizziness, headaches, seizures, syncopal episodes or other neurologic deficits. PHYSICAL EXAMINATION: VITAL SIGNS: Initially in the Emergency Department prior to the initiation of Cardizem and Cardizem drip, heart rate 150 with blood pressure 136/81, respirations 18, saturation 98% on room air. He was afebrile. After initiation of Cardizem drip for 12 hours with additional boluses and starting on a digoxin load and discharge to the Floor, heart rate was 87, blood pressure 163/74, respiratory rate 12, saturation 95% on room air. Admission weight 158.2 kg. GENERAL: The patient was resting comfortably, appeared to be in no acute distress, alert, without complaint of chest pain. HEENT: Tympanic membranes clear bilaterally. Oropharynx is pink, moist without any lesions. NECK: Supple, nontender with full range of motion. No jugular venous distention noted. RESPIRATORY: Lungs clear to auscultation bilaterally without any rhonchi, wheezes, or rales. CARDIOVASCULAR: Slightly irregular rate and rhythm with a controlled ventricular rate in the 80s. No murmurs, gallops, or rubs appreciated. ABDOMEN: Obese, but soft, nontender. Positive bowel sounds. EXTREMITIES: There is no cyanosis, clubbing or edema. NEUROLOGIC: The patient is alert and oriented times three. LABORATORY: Initial troponin from the Emergency Room was 0.02. After admission , CBC was completed and was within normal limits with hemoglobin 14.7, hematocrit 43.8, platelet count 204,000. Coagulation studies showed normal PT, PTT. Chemistries showed normal electrolytes. Glucose 123. Repeat cardiac enzymes on admission showed troponin 0.02. BNP was elevated at 304. RADIOLOGY: Chest x-ray on admission showed prominent heart, but no congestive failure with small bilateral pleural effusion. HOSPITAL COURSE: As noted above, Mr. Camara was initially seen in the Emergency Room for atrial fibrillation with rapid ventricular response without any significant chest pains or shortness of breath. He had previously been seen in the Emergency Room the same day and was started on digoxin, but returns because his heart rate was continuing to increase. He was then on admission to the Emergency Department given a bolus of Cardizem and started on Cardizem drip. I was initially contacted for possible admission, however, due to inability to keep drips on the Medical/Surgical Floor, the patient was held in the Emergency Room for approximately 12 hours until he was stable and could come off the Cardizem drip after being loaded on digoxin. He was given a loading dose in the Emergency Room of 0.25 mg and then admitted to the Medical/Surgical Floor for further cardiac telemetry monitoring and treatment. The initial plan was to load him up with additional digoxin, however, in the interim, prior to the next dose, I was able to talk with Dr. Cortez who consulted with Dr. Joe, his business analytics faculty member, who recommended the patient if the patient was asymptomatic to send him home after giving a second dose of digoxin and additional Cardizem long -acting 180 mg daily and continue on other medications as prior to arrival with addition of digoxin 0.25 mg daily. He was given just prior to discharge around 1 o'clock a second dose of 0.25 mg digoxin IV. Shortly after, he did convert to normal sinus rhythm in the 80s. The patient was again asymptomatic and was also given Cardizem 180 mg as well as his other medications. He was continued to be observed for a time period and was again found to be asymptomatic. Per Dr. Joe's request, the patient was to be discharged to have followup with him in his office to have a transesophageal echocardiogram with anticipation of electrocardioversion if needed. The patient was clinically stable and therefore was to be discharged. PLAN: The patient is going to be discharged to followup with Dr. Cortez and Dr. Joe as described above. He was started on oral digoxin 0.25 and Cardizem extended release 180 mg daily. All other medications were to resume as previous to hospitalization. Activities to increase as tolerated. Diet as tolerated. Plan for transesophageal echocardiogram to be arranged through Dr. Joe's office today or with phone call by Dr. Joe's office to the patient. The patient was given prescriptions for new medications to include: 1. Digoxin 0.25 mg daily, #30. 2. Cardizem long-acting 180 mg daily. He was continued on carvedilol 25 mg twice daily as well as Valsartan 325 mg daily and Eliquis 5 mg twice daily, which he had been on for approximately one week. At discharge, the patient was showing normal sinus rhythm on repeat EKG. The patient was stable, improved and did not have any complaints at time of discharge. #[id number] [facility]
[2018-02-21] MEDS ORDERED: DIGOXIN 0.25 MG TAB PO SCH (12:00)
== END 2018-02-20 14:39 | disposition home or self-care (01) ==
LOC: ER 21:02 → MS 02-20 08:03
PROVIDERS: ADMIT Nurse Practitioner Family; ATTEND Nurse Practitioner Family
DX: I48.91 Unspecified atrial fibrillation (principal); I10 Essential (primary) hypertension; K21.9 Gastro-esophageal reflux disease without esophagitis; G47.30 Sleep apnea, unspecified; J90 Pleural effusion, not elsewhere classified; Z79.01 Long term (current) use of anticoagulants; Z79.899 Other long term (current) drug therapy; Z82.49 Family history of ischemic heart disease and other diseases of the circulatory system
CPT/HCPCS: 96376; J1160 ×2; J7050; 80053; 36415 ×2; 85025; 85730; 85610; 84484 ×2; 83880; 71046; 94760; 99285; 93005 ×3; G0378; 96365; 96366 ×2; 96375

== ENCOUNTER → 2018-03-05 | Outpatient (CLI) | payer OTHER | LOC: GMAL 11:50 | PROVIDERS: ATTEND Family Medicine | DX: I48.0 Paroxysmal atrial fibrillation (principal) ==

== ENCOUNTER → 2018-10-24 | Outpatient (CLI) | payer BC | LOC: GMAL 17:31 | PROVIDERS: ATTEND Family Medicine | DX: D51.3 Other dietary vitamin B12 deficiency anemia (principal); D50.9 Iron deficiency anemia, unspecified; M10.072 Idiopathic gout, left ankle and foot; E55.9 Vitamin D deficiency, unspecified ==

== ENCOUNTER → 2019-04-17 | Outpatient (CLI) | payer BC | LOC: GMAL 11:09 | PROVIDERS: ATTEND Family Medicine | DX: Z00.01 Encounter for general adult medical examination with abnormal findings (principal) ==

== ENCOUNTER → 2019-10-22 | Outpatient (CLI) | payer BC | LOC: GMAL 10:29 | PROVIDERS: ATTEND Family Medicine | DX: D51.3 Other dietary vitamin B12 deficiency anemia (principal); I10 Essential (primary) hypertension; E55.9 Vitamin D deficiency, unspecified; Z13.220 Encounter for screening for lipoid disorders ==

== ENCOUNTER → 2020-04-13 | Outpatient (CLI) | payer BC | LOC: GMAL 10:43 | PROVIDERS: ATTEND Family Medicine | DX: D51.3 Other dietary vitamin B12 deficiency anemia (principal); E55.9 Vitamin D deficiency, unspecified; Z79.899 Other long term (current) drug therapy ==